=== PATIENT | male | born 1990 | race Caucasian/White ===

== ENCOUNTER 2025-07-18 06:29 | Day surgery (SDC) | payer OTHER ==
[2025-07-14 15:26] VITALS: BMI 32.5
[2025-07-18] MEDS ORDERED: AFRIN NASAL MIST 15 ML BOT ONE (07:10)
[2025-07-18] MEDS ORDERED: Oxymetazoline HCl 0.05% (15 ML) ONE (07:15)
[2025-07-18] MEDS ORDERED: Tranexamic Acid 1,000 MG/10 ML VIAL ONE (08:41)
[2025-07-18] MEDS ORDERED: Lidocaine 1% w/Epinephrine 1:200K 30 ML VIAL ONE (08:42)
[2025-07-18] MEDS ORDERED: PROPOFOL 40 ML ONE (08:50)
[2025-07-18] MEDS ORDERED: Rocuronium Bromide 10 MG/ML (10ML VIAL) ONE (08:50)
[2025-07-18] MEDS ORDERED: Ondansetron PF 4 MG/2 ML Vial ONE ×2 (08:50→13:27)
[2025-07-18] MEDS ORDERED: HYDROcodone/Acetaminophen 5/325 mg Tablet ONE (13:28)
== END 2025-07-18 14:15 | disposition home or self-care (01) ==
LOC: CSHSDC 06:29
PROVIDERS: ATTEND Otolaryngology
DX: J34.2 Deviated nasal septum (principal); J33.9 Nasal polyp, unspecified; Z91.018 Allergy to other foods
CPT/HCPCS: 88304; 88305; 88311; J0169; J1100; J2250; J2405; J2704; J3010